=== PATIENT | male | born 1980 | race Caucasian/White ===

== ENCOUNTER 2020-04-08 01:51 | Emergency (ER) | payer OTHER, SELFPAY ==
[2020-04-08 01:55] VITALS: BP 152/92; PULSE 121; RESP 18; TEMP 36.7; O2SAT 96; BMI 29.0
--- NOTE | 2020-04-08 03:48 | ED.GENADULT ---
HPI - General Adult General Chief complaint: Skin/Abscess/Foreign Body Stated complaint: Bug Bites Time Seen by Provider: 04/08/20 03:43 Source: patient Mode of arrival: ambulatory History of Present Illness HPI narrative: Scabies infestation after assisting neighbor with moving futon and clearly rash on bilateral upper extremities as well as palms and proximal thighs left greater than right that occurred 2 days after patient helped the move. He denies any fevers or chills says that they were itchy but then he applied Benadryl cream. Related Data Previous Rx's Medication Instructions Recorded permethrin 1 appl TOPICAL Q14D #2 ea 04/08/20 Allergies Allergy/AdvReac Type Severity Reaction Status Date / Time No Known Allergies Allergy Verified 04/08/20 02:02 Review of Systems Review of Systems: Pertinent positives and negatives as stated in HPI 10 point review systems is otherwise negative. [facility] Past Medical History Source: nursing notes reviewed Social History Social History Advance Directives: No Advance Directives Information Provided: No Physical Exam Vital Signs: Vital Signs: Last Vital Signs Temp 98.0 F 04/08/20 01:55 Pulse 121 H 04/08/20 01:55 Resp 18 04/08/20 01:55 BP 152/92 H 04/08/20 01:55 Pulse Ox 96 04/08/20 01:55 Body Mass Index 29.0 VITAL SIGNS: Reviewed. GENERAL: Well developed, well nourished, in no acute distress. OROPHARYNX: no oral lesions noted, posterior pharynx clear NECK: Supple, no adenopathy LUNGS: Normal breath sounds. SpO2<96> CARDIOVASCULAR: Regular rate and rhythm without noted murmurs ABDOMEN: Soft, non-tender, non-distended with bowel sounds. SKIN: Inspection of the skin reveals appearance of pustular papular rash, but on closer inspection appears to be multiple insect related reactions that are noted to bilateral upper extremities as well as palmar aspect and involves the belt line of the abdomen and extends onto proximal bilateral lower extremities NEUROLOGIC: Alert and oriented x 4. Course Course Course Narrative: This is a 40-year-old male with history and clinical presentation was consistent with scabies given the involvement palms and less likely bedbugs. Patient was informed of diagnosis and plan and was discharged in stable condition. Discharge Plan Discharge Clinical Impression: Scabies Patient Disposition: Home, Self-Care Instructions: Scabies (ED) Additional Instructions: 1. Wash all linens/clothes in hot water or bag bulky items and keep sealed for 2 weeks. 2. Pruritis may continue for weeks despite successful elimination of infestation. 3. Please follow up with her primary care provider for re-evaluation and further outpatient management as indicated in the next 2-3 days. Do not hesitate to return to the emergency department should you experience any acute worsening of her symptoms. Prescriptions: New permethrin 5 % cream 1 appl topical Q14D Qty: 2 RF: 0 Referrals: Physician,Unknown [Primary Care Provider] - 2 days Interventions: ED Discharge Assessment Last Done: 04/08/20 04:04 Discharge Date/Time: 04/08/20 04:06
== END 2020-04-08 04:06 | disposition home or self-care (01) ==
PROVIDERS: Emergency Provider Student in an Organized Health Care Education/Training Program
DX: B86 Scabies (principal)
CPT/HCPCS: 99283

== ENCOUNTER 2020-04-08 19:18 | Emergency (ER) | payer OTHER, SELFPAY | END 2020-04-08 21:25 | disposition left against medical advice (07) | PROVIDERS: Emergency Provider Emergency Medicine | DX: B86 Scabies (principal) ==